=== PATIENT | female | born 1990 | race African-American/Black ===

== ENCOUNTER 2020-05-09 02:12 | Emergency (ER) | payer SELFPAY ==
[~2020-05-09] VITALS: Ht 167.6 cm; Wt 95.0 kg
[2020-05-09 02:14] VITALS: BP 111/84
== END 2020-05-09 02:36 | disposition left against medical advice (07) ==
LOC: ER 02:12
DX: Z53.21 Procedure and treatment not carried out due to patient leaving prior to being seen by health care provider (principal)